=== PATIENT | male | born 1990 | race Caucasian/White ===

== ENCOUNTER 2019-10-24 14:47 | Emergency (ER) | payer SELFPAY | END 2019-10-24 17:43 | disposition home or self-care (01) | PROVIDERS: Emergency Provider Family Medicine; Visit Provider Family Medicine | DX: S01.01XA Laceration without foreign body of scalp, initial encounter (principal); S51.832A Puncture wound without foreign body of left forearm, initial encounter; Y00.XXXA Assault by blunt object, initial encounter; Y92.009 Unspecified place in unspecified non-institutional (private) residence as the place of occurrence of the external cause; Z23 Encounter for immunization; Z87.891 Personal history of nicotine dependence | CPT/HCPCS: 12001 ==